=== PATIENT | female | born 1965 | race Caucasian/White ===

== ENCOUNTER 2018-12-11 19:45 | Emergency (ER) | payer BC ==
[~2018-12-11] VITALS: Ht 160 cm; Wt 61.2 kg
[2018-12-11 20:26] VITALS: Ht 160 cm; Wt 61.2 kg
[2018-12-11 22:22] VITALS: BP 126/90
== END 2018-12-11 22:22 | disposition home or self-care (01) ==
LOC: ED 19:45
DX: S92.352A Displaced fracture of fifth metatarsal bone, left foot, initial encounter for closed fracture (principal); Z88.5 Allergy status to narcotic agent; W18.40XA Slipping, tripping and stumbling without falling, unspecified, initial encounter; Y93.89 Activity, other specified; Y92.89 Other specified places as the place of occurrence of the external cause; Y99.8 Other external cause status
CPT/HCPCS: Q0092